=== PATIENT | male | born 1975 | race Hispanic/Latino ===

== ENCOUNTER 2019-10-22 23:38 | Inpatient (IN) | payer OTHER ==
[~2019-10-22] VITALS: Ht 182.9 cm; Wt 143.8 kg
[2019-10-23 00:02] LABS: BASOPHILS % (AUTO) 0.4 % (0.0-5.0); EOSINOPHILS % (AUTO) 1.1 % (0.0-8.0); HEMATOCRIT 43.9 % (42-54); MEAN CORPUSCULAR HEMOGLOBIN 26.5 pg (27.0-33.0); MEAN CORPUSCULAR HGB CONC 31.9 g/dL (32.0-36.0); MEAN CORPUSCULAR VOLUME 83.1 fL (79-99); MONOCYTES % (AUTO) 6.1 % (3.0-13.0); NEUTROPHILS % (AUTO) 70.3 % (40.0-77.0); PLATELET COUNT (AUTO) 263 K/uL (130-400); RED BLOOD CELL COUNT(AUTO) 5.28 MIL/uL (4.50-6.20); RED CELL DISTRIBUTION WIDTH 13.9 % (11.0-15.5); WHITE BLOOD COUNT (AUTO) 9.4 K/uL (4.8-10.8)
[2019-10-23 00:11] LABS: POTASSIUM 3.7 mmol/L (3.5-5.1)
[2019-10-23 00:16] LABS: ALBUMIN 3.4 g/dL (3.5-5.0); BILIRUBIN,TOTAL 0.4 mg/dL (0.2-1.0); TOTAL PROTEIN, SERUM 8.2 g/dL (6.0-8.3)
[2019-10-23 00:17] LABS: APPEARANCE,URINE Clear (CLEAR); BILIRUBIN,URINE Negative (NEGATIVE); COLOR,URINE Yellow (YELLOW); GLUCOSE, URINE (UA) Negative (NEGATIVE); KETONES,URINE Negative (NEGATIVE); LEUKOCYTE ESTERASE ,URINE Negative (NEGATIVE); NITRATE,URINE Negative (NEGATIVE); OCCULT BLOOD,URINE Large (NEGATIVE); PH,URINE 6.5 (5.0-8.0); PROTEIN,URINE Trace mg/dL (NEGATIVE)
[2019-10-23 00:29] LABS: BACTERIA,URINE None Seen /HPF (None Seen); RBC,URINE 26-50 /HPF (0-1); SQUAMOUS EPITHELIAL CELL,UR Rare /HPF (0-2); WBC,URINE 0-1 /HPF (0-1); YEAST,URINE BUDDING Few /HPF (None Seen)
[2019-10-23] MEDS ORDERED: TAMSULOSIN HCL 0.4 MG CAP.ER.24H ONE (00:56)
[2019-10-23] MEDS ORDERED: SODIUM CHLORIDE 0.9% 500ML 500 ML IV ONE (00:56)
[2019-10-23] MEDS ORDERED: KETOROLAC TROMETHAMINE 30MG/ML ONE (00:56)
[2019-10-23] MEDS ORDERED: ONDANSETRON HCL 4 MG/2 ML VIAL ONE ×2 (01:18)
[2019-10-23] MEDS ORDERED: MORPHINE SULFATE 4 MG/1ML SYG ONE ×2 (01:18)
[2019-10-23] MEDS ORDERED: SODIUM CHLORIDE 0.9% 50 ML IV ONE (02:29)
[2019-10-23 05:05] VITALS: BP 145/99
--- NOTE | 2019-10-23 05:05 | NUR ---
ADMISSION NOTE: Admitted to floor via W/C. Pt ambulatory. Awake and responsive. Placed in bed comfortably. VS checked and recorded. Assessment done. (See CPOE flow chart for full assessment). Plan of care initiated.Has IV site to LAC #20 gauge - patent and intact. Telemetry attached at bedside with SR 90's. To consult urologist , Dr. Amezquita in AM. Home med entered. Monitored and observed for any unusualities. Needs attended and cared for.
[2019-10-23] MEDS ORDERED: LOSA1TAB54 PO (05:15)
[2019-10-23 06:01] LABS: BASOPHILS % (AUTO) 0.3 % (0.0-5.0); EOSINOPHILS % (AUTO) 0.3 % (0.0-8.0); HEMATOCRIT 41.8 % (42-54); LYMPHOCYTES % (AUTO) 14.6 % (21.0-51.0); MEAN CORPUSCULAR HEMOGLOBIN 26.4 pg (27.0-33.0); MEAN CORPUSCULAR HGB CONC 31.8 g/dL (32.0-36.0); MEAN CORPUSCULAR VOLUME 82.9 fL (79-99); MONOCYTES % (AUTO) 7.1 % (3.0-13.0); NEUTROPHILS % (AUTO) 77.2 % (40.0-77.0); PLATELET COUNT (AUTO) 251 K/uL (130-400); RED BLOOD CELL COUNT(AUTO) 5.04 MIL/uL (4.50-6.20); RED CELL DISTRIBUTION WIDTH 13.9 % (11.0-15.5); WHITE BLOOD COUNT (AUTO) 11.8 K/uL (4.8-10.8)
[2019-10-23 06:29] LABS: ALBUMIN 3.1 g/dL (3.5-5.0); BILIRUBIN,TOTAL 0.6 mg/dL (0.2-1.0); POTASSIUM 4.2 mmol/L (3.5-5.1); TOTAL PROTEIN, SERUM 7.4 g/dL (6.0-8.3)
[2019-10-23] MEDS ORDERED: HYDROMORPHONE HCL 2 MG/ML VIAL IVP PRN (06:30)
[2019-10-23] MEDS ORDERED: ONDANSETRON HCL 4 MG/2 ML VIAL IVP PRN (06:30)
[2019-10-23] MEDS: 1/2 NORMAL SALINE 1,000 ML IV SCH ×2 (06:30→15:34)
[2019-10-23] MEDS ORDERED: 1/2 NORMAL SALINE 1,000 ML IV ONE (06:32)
--- NOTE | 2019-10-23 07:15 | NUR ---
SIRENA RODRIGUEZ ROUNDED: VISITED AND TALKED TO PT WITH THE FF. ORDERS, PLEASE FOLLOW UP UROLOGIST AND PLACED PT ON ACHS , SS#1. TO DISCONTINUE ACHS IF BLOOD SUGAR STABLE FOR DAYS.
[2019-10-23] MEDS ORDERED: GLUCAGON 1MG KIT 1 MG ML IM PRN (07:30)
[2019-10-23] MEDS: INSULIN HUMULIN R 100 UNIT/ML 3ML SQ SCH ×4 (07:30→21:00)
[2019-10-23] MEDS ORDERED: DEXTROSE 50%-WATER 50 ML DISP.SYRIN IV PRN (07:30)
[2019-10-23] MEDS ORDERED: ROSU5TAB12 PO (07:49)
[2019-10-23 07:58] VITALS: BP 168/104
[2019-10-23] MEDS: TAMSULOSIN HCL 0.4 MG CAP.ER.24H PO SCH ×2 (08:37→21:19)
--- NOTE | 2019-10-23 10:30 | NUR ---
SPOKE TO ANSWERING SERVICE REGARDING CONSULT FOR DR ORDOÑEZ. PENDING CALL BACK.
[2019-10-23] MEDS: HYDROMORPHONE HCL 0.5 MG/0.5 ML ML IVP PRN (10:45)
--- NOTE | 2019-10-23 10:56 | NUR ---
SPOKE WITH DR ORDOÑEZ REGARDING CONSULT AND CT RESULTS. STATED WOULD BE HERE THIS AFTERNOON TO SEE PT.
[2019-10-23 12:00] VITALS: BP 155/92
[2019-10-23 16:00] VITALS: BP 173/92
[2019-10-23] MEDS: LOSARTAN/HYDROCHLOROTHIAZIDE 50-12.5MG TABLET PO SCH (17:45)
[2019-10-23 20:30] VITALS: BP 169/89
[2019-10-23] MEDS ORDERED: ATORVASTATIN CALCIUM 20 MG TABLET PO SCH (21:00)
[2019-10-23 23:59] VITALS: BP 138/76
[2019-10-24] MEDS: 1/2 NORMAL SALINE 1,000 ML IV SCH (00:17)
[2019-10-24] MEDS: HYDROMORPHONE HCL 0.5 MG/0.5 ML ML IVP PRN (02:09)
[2019-10-24 03:35] VITALS: BP 131/91
[2019-10-24] MEDS ORDERED: CEFTRIAXONE SODIUM 1 GM IVP SCH (05:00)
[2019-10-24] MEDS: INSULIN HUMULIN R 100 UNIT/ML 3ML SQ SCH (05:31)
--- NOTE | 2019-10-24 06:10 | NUR ---
SIRENA RODRIGUEZ ROUNDED SEEN AND TALKED TO PATIENT. OK TO DC HOME AND FOR PT TO CALL IN THE CLINIC FOR [facility] PRES[facility].
[2019-10-24 06:16] LABS: HEMATOCRIT 39.1 % (42-54); MEAN CORPUSCULAR HEMOGLOBIN 27.1 pg (27.0-33.0); MEAN CORPUSCULAR HGB CONC 32.7 g/dL (32.0-36.0); MEAN CORPUSCULAR VOLUME 82.8 fL (79-99); PLATELET COUNT (AUTO) 237 K/uL (130-400); RED BLOOD CELL COUNT(AUTO) 4.72 MIL/uL (4.50-6.20); WHITE BLOOD COUNT (AUTO) 15.4 K/uL (4.8-10.8)
[2019-10-24 06:31] LABS: CREATININE 1.4 mg/dL (0.5-1.5); POTASSIUM 4.1 mmol/L (3.5-5.1)
[2019-10-24 08:00] VITALS: BP 133/74
[2019-10-24] MEDS: TAMSULOSIN HCL 0.4 MG CAP.ER.24H PO SCH (08:58)
[2019-10-24] MEDS: LOSARTAN/HYDROCHLOROTHIAZIDE 50-12.5MG TABLET PO SCH (08:59)
[2019-10-24] MEDS ORDERED: LOSARTAN/HYDROCHLOROTHIAZIDE 50-12.5MG TABLET PO SCH (09:00)
--- NOTE | 2019-10-24 09:30 | NUR ---
DR ORDOÑEZ STATED " PATIENT WBC ARE NORMAL HE CAN GO HOME" REPORTED THIS TO DR PACK, D/C ORDER PLACED.
--- NOTE | 2019-10-24 11:17 | NUR ---
DISCHARGE PATIENT GIVEN DISCHARGE INSTRUCTION AND EDUCATION ON FOLLOW UP APPOINTMENTS AND NEW PRESCRIBED MEDICATIONS. PATIENT VERBALIZED UNDERSTANDING OF ALL EDUCATION GIVEN VIA TEACH BACK. NO DISTRESS NOTED UPON DISCHARGE. PATIENT LEFT VIA WHEELCHAIR, ALL BELONGINGS TAKEN WITH. IV DISCONTINUED,CATHETER INTACT.
--- NOTE | 2019-10-24 12:00 | NUR ---
CM NOTE PT DISCHARGE ORDER PRIOR TO CM ASSESSMENT. NO TRIGGERS TO CM, NO CONCERNS VOICED BY PATIENT OR PRIMARY RN Addendum: 10/25/19 at 0747 by ASYA CASTELLANOS RN CM Amended: Links added.
== END 2019-10-24 12:06 | disposition home or self-care (01) | DRG 694 ==
LOC: EDH 23:38 → EDHIP 10-23 03:21 → OBSVTOIN 10-23 03:21 → 4CH 10-23 04:33
PROVIDERS: ADMIT Internal Medicine; ATTEND Internal Medicine
DX: N13.2 Hydronephrosis with renal and ureteral calculous obstruction (principal); Z68.41 Body mass index [BMI] 40.0-44.9, adult; E66.9 Obesity, unspecified; E66.01 Morbid (severe) obesity due to excess calories; I10 Essential (primary) hypertension; Z87.442 Personal history of urinary calculi
CPT/HCPCS: 36415; 74176; 76770; 80048; 80053; 81001; 82948; 85025; 85027; G0378; J0696; J1170; J1885; J2270; J2405; J7040